=== PATIENT | male | born 1980 | race African-American/Black ===

== ENCOUNTER 2016-07-26 00:17 | Emergency (ER) | payer OTHER ==
[~2016-07-26] VITALS: Ht 177.8 cm; Wt 91.0 kg
[~2016-07-26 00:17] MED LIST: FLEXERIL10 MG PO; NAPROSYN500 MG PO; TRAMADOL HCL50 MG PO
[2016-07-26 02:20] VITALS: BP 158/108
== END 2016-07-26 02:21 | disposition home or self-care (01) ==
LOC: EME 00:17
DX: I10 Essential (primary) hypertension (principal); Z73.3 Stress, not elsewhere classified; F17.200 Nicotine dependence, unspecified, uncomplicated; F10.20 Alcohol dependence, uncomplicated
CPT/HCPCS: 99281; 99284